=== PATIENT | male | born 1935 | race Caucasian/White ===

== ENCOUNTER 2018-04-18 02:01 | Inpatient (IN) | payer OTHER ==
[~2018-04-18] VITALS: Ht 180.3 cm; Wt 99.8 kg
[~2018-04-18 02:01] MED LIST: ALLI60 MG PO; AMLODIPINE BESY10 M1 PO; ASPIRIN EC81 M1 PO; ATENOLOL25 M1 PO; DYAZIDE 37.5-21 EACH PO; FINASTERIDE5 M1 PO; GLUCOSAMINE &1 EAC1 PO; HYDRALAZINE HCL50 M1 PO; LISINOPRIL40 M1 PO; MECLIZINE HCL25 MG PO; MULTIVITAMINS1 EAC9 PO; NIACIN500 M6 PO; SAW PALMETTO450 M1 PO; ZOCOR20 M1 PO
--- NOTE | 2018-04-18 14:48 | Operative Report ---
Operative/Inv Procedure Report Surgery Date: 04/18/18 Name of Procedure: Left total knee replacement Pre-Operative Diagnosis: Primary left knee DJD Post-Operative Diagnosis: Same Estimated Blood Loss: 50ml to 100ml Surgeon/Hop Trainer: Jonathan MCLEOD,James Rodríguez Anesthesia: block Operative/Procedure Note Note: Description of Procedure: The patient was taken to the operating room and positively identified. After induction of spinal anesthesia and administration of appropriate pre-operative antibiotics, the patient was positioned supine on the operating room table and all bony prominences were well padded. A well-padded pneumatic tourniquet was placed on the left upper thigh. After performing a surgical timeout, the left lower extremity was prepped and draped in the usual sterile fashion. After exsanguination with Esmarch the tourniquet was inflated to 250mm of mercury. A standard medial parapatellar approach was made to the knee. This was carried down through skin and subcutaneous tissue to the level of the fascia. Meticulous hemostasis was maintained with Bovie electrocautery. The extensor mechanism and patellar retinaculum were opened sharply and the patella was everted. The infrapatellar fat was resected in order to improve exposure. Osteophytes were trimmed from the patella and femoral condyles and the patella was re-everted and tucked laterally. A medial release was performed and the cruciate ligaments were resected. The tibia was then subluxed anteriorly. Utilizing the appropriate extra-medullary guide, the proximal tibia was trimmed perpendicular to the long axis of the tibial shaft. Attention was then turned to the femur. After opening the medullary canal, the distal femoral cut was made in 6 degrees of valgus utilizing the appropriate intra-medullary guide. The extension gap was checked and found to be appropriate. The femur was then sized and the remainder of the femoral cuts were made with a size 5 4-in-1 femoral cutting guide. The flexion gap was checked and found to be symmetric and appropriate. The knee was then trialed with a size 5 femoral component, a size 6 tibial component and a size 11 mm polyethylene insert. The patella was trimmed to accept an A 35 patella. This yielded excellent range of motion, stability and patellar tracking. All trial components were removed and the knee was copiously irrigated with sterile saline. All components were cemented into place with Roland Simplex cement. All the components were of the Kurtis Triathlon knee system of the above stated sizes. The knee was again irrigated after cementation. The extensor mechanism and patellar retinaculum were repaired using interrupted #1 vicryl suture. The skin was re-approximated with 2-0 vicryl and closed with keira. A sterile dressing was applied, the tourniquet was deflated, the patient was awakened and taken to the recovery room in satisfactory condition.
--- NOTE | 2018-04-18 15:21 | Admission Core Measures ---
Acute Coronary Syndrome (CM) ACS Core Measures Acute Coronary Syndrome Diagnosis No Congestive Heart Failure (NEW) CHF Core Measures Congestive Heart Failure Diagnosis No Cerebrovascular Accident CVA Core Measures CVA/TIA Diagnosis No Venous Thromboembolism VTE Core [place] (View Protocol) VTE Risk Factors Surgery No Mechanical VTE Prophylaxis d/t N/A MechProphylax Ordered No VTE Pharm Prophylaxis d/t NA PharmProphylax ordered Problem List As ranked by this Provider includes Assessment & Plan 1. Unilateral primary osteoarthritis, left knee HOME MEDS Home Med List Amlodipine Besylate 10 MG TABLET 1 TAB PO DAILY BP (Reported) Aspirin (Ecotrin*) 81 MG TABLET.DR 1 TAB PO DAILY HEART/BLOOD (Reported) Atenolol 25 MG TABLET 1 TAB PO DAILY BP (Reported) Finasteride 5 MG TABLET 1 TAB PO DAILY PROSTATE (Reported) Gluc 2KCL/Chondr/Lane Hy/Hy AC (Glucosamine & Chondroitin Cap) (Unknown Strength ) CAPSULE (Unknown Dose) PO BID SUPPLEMENT (Reported) Hydralazine HCl 50 MG TABLET 1.5 TAB PO BID BP (Reported) Lisinopril 40 MG TABLET 1 TAB PO DAILY BP (Reported) Meclizine HCl 25 MG TABLET 1 TAB PO PRN DIZZINESS (Reported) Multiple Vitamin (Multivitamins) 1 EACH TABLET 1 TAB PO DAILY SUPPLEMENT ( Reported) Niacinamide (Niacin) 500 MG TABLET 1 TAB PO DAILY SUPPLEMENT (Reported) Orlistat (JAYDON) 60 MG CAPSULE 1 CAP PO AD WEIGHT LOSS (Reported) Saw [place] Fruit (Saw [place]) 450 MG CAPSULE 1 CAP PO BID SUPPLEMENT ( Reported) Simvastatin (Zocor*) 20 MG TABLET 1 TAB PO DAILY CHOLESTEROL (Reported) Triamterene/Hydrochlorothiazid (Dyazide 37.5-25 Capsule) 37.5 MG-25 MG CAPSULE 1 CAP PO DAILY BP (Reported)
[2018-04-18] MEDS ORDERED: DILAUDID2 M1 PO (15:59)
[2018-04-18] MEDS ORDERED: MIRALAX17 G1 PO (15:59)
[2018-04-18] MEDS ORDERED: ASPIRIN EC325 M2 PO (15:59)
[2018-04-18] MEDS ORDERED: COLACE100 M1 PO (15:59)
[2018-04-18] MEDS ORDERED: PRILOSEC OTC20 M1 PO (15:59)
--- NOTE | 2018-04-18 16:05 | Patient Discharge Instructions ---
Discharge Instructions General Discharge Information You were seen/treated for: Left knee pain related to unilateral primary osteoarthritis You had these procedures: Left total knee replacement Watch for these problems: Increasing pain despite the use of pain medication Increasing redness, warmth or swelling Drainage of any type from incision Inability to bear weight on operative leg Persistent nausea and vomiting Fever greater than 101.5 degrees Do not soak the wound: Yes No bath, but you may shower: Yes Other wound care: Please keep wound clean and dry. No ointments or lotions of any type on or near incision at any time. No exceptions. Your dressing will be changed by your nurse on the second day after your surgery. Daily dry dressing changes are recommended each day thereafter. Do not soak your wound in a bath or pool at any time until otherwise indicated by your surgeon. You may shower, please dry wound immediately after shower with a clean towel. Special Instructions: Aspirin: You are taking this medication to help prevent blood clot formation. Please take with food to protect your stomach lining. Please take as directed. Constipation: Pain medication can cause constipation. Your surgeon has recommended that you take Colace and miralax each day. You may discontinue this medication if you develop loose stool or diarrhea. If you wish to continue this medication, it is available over the counter. If you are unable to move your bowels after several days, if you are unable to pass gas and are developing bloating, nausea, or vomiting as a result, please contact your doctor. Diet Continue normal diet: Yes Recommended Diet: Heart Healthy Activity Full Activity/No Limits: No Activity Self Limited: Yes Pounds, do NOT lift more than: 10 Acute Coronary Syndrome Inclusion Criteria At DC or during hospital stay patient has or had the following: ACS DIAGNOSIS No Discharge Core Measures Meds if any: Prescribed or Continued at Discharge Meds if any: NOT Prescribed or Continued at Discharge Congestive Heart Failure Inclusion Criteria At DC or during hospital stay patient has or had the following: CHF DIAGNOSIS No Discharge Core Measures Meds if any: Prescribed or Continued at Discharge Meds if any: NOT Prescribed or Continued at Discharge Cerebrovascular accident Inclusion Criteria At DC or during hospital stay patient has or had the following: CVA/TIA Diagnosis No Discharge Core Measures Meds if any: Prescribed or Continued at Discharge Meds if any: NOT Prescribed or Continued at Discharge Venous thromboembolism Inclusion Criteria VTE Diagnosis No VTE Type NONE VTE Confirmed by (Test) NONE Discharge Core Measures - Per Current guidelines, there needs to be overlap - treatment for the first 5 days of Warfarin therapy. - If discharged on Warfarin prior to 5 days of - overlap therapy, the patient will need to be - assessed for post discharge needs including - *Post discharge parental anticoagulation - *Warfarin and/or parental anticoagulation education - *Follow up date to check INR post discharge At least 5 days overlap therapy as Inpatient No Meds if any: Prescribed or Continued at Discharge Note: Overlap Therapy is Warfarin and Anticoagulant Meds if any: NOT Prescribed or Continued at Discharge
--- NOTE | 2018-04-18 16:06 | PN- Orthopedic ---
Subjective Subjective: POC Pt is recovering well in PACU, no complaints of pain, just tightness in his left knee. Denies paresthesias. Tolerating clears. Due to void. Denies CP,SOB or PLEITEZ Objective Vital Signs and I&Os Intake & Output 04/18 1600 04/18 0800 04/18 0000 04/17 1600 04/17 0800 04/17 0000 Intake Total Output Total Balance Patient 224 lb 227 lb Weight Bradicardic at 45-50 bpm, BP 125/55 Physical Exam: gen- NAD resp- clear cardiac- sindhu, regular rhythm ext- LLE wrapped in ruma bandage with ice pack, dressing clean and dry. 2+PT pulse. Distal sensory and motor function intact Current Medications: Current Medications Sig/Jacqueline Start time Last Medication Dose Route Stop Time Status Admin Acetaminophen 0 .STK-MED ONE 04/18 1152 DC PO Acetaminophen 975 MG ONCE 04/18 0000 AC PO 04/18 2359 Cefazolin Sodium 2,000 MG ONCE 04/18 0000 NR IV 04/18 2359 Fentanyl Citrate 0 .STK-MED ONE 04/18 1150 DC .ROUTE Midazolam HCl 0 .STK-MED ONE 04/18 1150 DC .ROUTE Midazolam HCl 2 MG .STK-MED ONE 04/18 0654 DC IM 04/18 0655 Oxycodone HCl 0 .STK-MED ONE 04/18 1152 DC PO Oxycodone HCl 10 MG ONCE 04/18 0000 AC PO 04/18 2359 Tranexamic Acid 2,000 MG .STK-MED ONE 04/18 0654 DC IV 04/18 0655 Assessment/Plan Assessment/Plan 82yo M SP L TKA POD0. stable with bradycardia in PACU. pt states he took his betablocker this morning pain management IVF overnight, likely will DC in am reg diet FU AM labs regular home meds. Will follow vital signs, may hold home betablocker if HR continues to be low PT- WBAT IS DVT PPX- asa, alps, teds dressing change POD2 DC planning- to stay 2-3 nights Core Measures Venous Thromboembolism VTE Risk Factors Surgery No Mechanical VTE Prophylaxis d/t N/A MechProphylax Ordered No VTE Pharm Prophylaxis d/t NA PharmProphylax ordered
--- NOTE | 2018-04-18 16:07 | Surgical Discharge Summary ---
Visit Information Visit Dates Admission Date: 04/18/18 History of Present Illness Chief Complaint: Left knee pain related to unilateral primary osteoarthritis Medical History Isolation History: Standard Surgical History Pertinent Surgical History: non-contributory Review of Systems: See H&P Hospital Course Course Attending Physician: James Castillo MD Primary Care Physician: Rodger Carter MD Hospital Course: Patient was admitted to the hospital for an elective total joint replacement. The procedure was tolerated well and patient was transferred to a general surgical floor. Diet was advanced and tolerated. The patient was evaluated and treated by physical therapy. At the time of hospital discharge, the vital signs were stable, neurovascular status was intact, and pain was controlled with the use of oral pain medications. Allergies: Coded Allergies: oxybutynin (From DITROPAN) (UNKNOWN 04/17/18) DITROPAN XL PER ANTIBIOTIC ORDER SHEET OF 04/17/18 ([facility]) Disposition Summary Disposition Principal Diagnosis: Left knee unilateral primary osteoarthritis Additional Diagnosis: None Discharge Disposition: home health services Discharge Instructions General Discharge Information Code Status: Full Code Patient's Diet: Heart healthy, advance as tolerated Patient's Activity: WBAT Follow-Up Instructions/Appts: Follow up with Dr. Castillo in 6 weeks from date of surgery. Please call office to arrange &/or confirm this appointment. Medications at Discharge Discharge Medications: Stop taking the following medications: Aspirin (Ecotrin*) 81 MG TABLET.DR BUNDY DAILY Continue taking these medications: Amlodipine Besylate (Amlodipine Besylate) 10 MG TABLET 1 Tablet ORAL DAILY Atenolol (Atenolol) 25 MG TABLET 1 Tablet ORAL DAILY Finasteride (Finasteride) 5 MG TABLET 1 Tablet ORAL DAILY Lisinopril (Lisinopril) 40 MG TABLET 1 Tablet ORAL DAILY Meclizine HCl (Meclizine HCl) 25 MG TABLET 1 Tablet ORAL as needed for DIZZINESS Hydralazine HCl (Hydralazine HCl) 50 MG TABLET 1.5 Tablet ORAL TWICE DAILY Simvastatin (Zocor*) 20 MG TABLET 1 Tablet ORAL DAILY Triamterene/Hydrochlorothiazid (Dyazide 37.5-25 Capsule) 37.5 MG-25 MG CAPSULE 1 Capsule ORAL DAILY Multiple Vitamin (Multivitamins) 1 EACH TABLET 1 Tablet ORAL DAILY Gluc 2KCL/Chondr/Lane Hy/Hy AC (Glucosamine & Chondroitin Cap) (Unknown Strength ) CAPSULE Unknown Dose ORAL TWICE DAILY Niacinamide (Niacin) 500 MG TABLET 1 Tablet ORAL DAILY Saw [place] Fruit (Saw [place]) 450 MG CAPSULE 1 Capsule ORAL TWICE DAILY Orlistat (JAYDON) 60 MG CAPSULE 1 Capsule ORAL As Directed Start taking the following new medications: Aspirin (Ecotrin*) 325 MG TABLET.DR 1 Tablet ORAL TWICE DAILY Qty = 60 No Refills Docusate Sodium (Colace) 100 MG CAPSULE 1 Capsule ORAL TWICE DAILY Qty = 14 No Refills Instructions: DISCONTINUE USE IF YOU DEVELOP LOOSE STOOL OR DIARRHEA Polyethylene Glycol 3350 (Miralax) 17 GRAM POWD.PACK 1 Packet ORAL DAILY Qty = 7 No Refills Instructions: dissolve in water, DISCONTINUE USE IF YOU DEVELOP LOOSE STOOL OR DIARRHEA Omeprazole Magnesium (Prilosec Otc) 20 MG TABLET.DR 1 Tablet ORAL DAILY Qty = 30 No Refills Hydromorphone HCl (Dilaudid) 2 MG TABLET 1-2 Tablet ORAL EVERY 4-6 HOURS NEEDED as needed for PAIN Qty = 36 No Refills
[2018-04-18 19:59] VITALS: BP 156/70
[2018-04-18 22:45] VITALS: BP 132/73
[2018-04-19 06:16] VITALS: BP 146/64
--- NOTE | 2018-04-19 06:58 | PN- Student ---
Kathelen Gunn 04/19/18 0643: Subjective Subjective: No acute events overnight, pt's heart rate has remained in low 60s/high 50s, pt states this is his baseline d/t his atenolol. The pt's knee is in quite a bit of pain this morning. He states it hurts to lift up his leg. Pt has not been seen by PT yet and hasn't been oob. Tolerating his reg diet. No flatus or BM yet. Pt denies n/v, h/a,fever,chills,cp. Objective Objective: Vital Signs Date Time Temp Pulse Resp B/P B/P Pulse O2 O2 Flow FiO2 Mean Ox Delivery Rate 04/19 616 98.9 61 18 146/64 93 Room Air 04/18 224 98.7 58 18 132/73 91 04/18 195 97.8 59 20 156/70 91 Last 24 Hours I&Os 04/19 0800 04/19 0000 04/18 1600 Intake Total 840 890 Output Total 350 300 Balance 490 590 Intake, IV 600 450 Intake, Oral 240 440 Output, Urine 350 300 Patient 220 lb Weight Weight Reported by Patient Measurement Method Microbiology Date/Time Procedure - Status Source Growth 04/18 1346 Miscellaneous Culture - CAN MISC O.R. Cancelled: ERROR 04/18 1346 Gram Stain - CAN MISC O.R. Cancelled: ERROR 04/18 1341 Gross Specimen Examination - RECD EXTREMITIE 04/18 1341 Gram Stain - RECD EXTREMITIE Orders Procedure Date/time Status CBC WITHOUT DIFFERENTIAL 04/19 06 Active BASIC ELECTROLYTES PLUS BUN&CR 04/19 0600 Active MISSING MEDICATION FORM 04/19 0452 Active Weight 04/19 0035 Complete Vital Signs 04/19 0035 Active Teach/Educate 04/19 003 Active Pain Treatment and Response 04/19 003 Active Nutritional Intake, Monitor 04/19 0035 Active Isolation 04/19 0035 Active Intake & Output 04/19 003 Active Patient Care Conference 04/19 0035 Active Activity/Ambulation 04/19 0035 Active Heart Healthy Diet 04/18 D Active PT Evaluate & Treat 04/18 1657 Active Pathway - chart 04/18 165 Active Admit to inpatient 04/18 1657 Active Patient Data 04/18 1657 Active Wound Care/Dressing 04/18 1657 Active VTE Mechanical Prophylaxis 07/25 1657 Active Vital Signs 04/18 1657 Active Nursing Misc 04/18 165 Active Heat/Cold Therapy 04/18 165 Active Activity/Ambulation 04/18 1657 Active TRANSFER ORDERS 04/18 1455 Complete Code Status 04/18 1455 Active PATHOLOGY SPECIMEN 04/18 1433 Active EXTREMETIES OR SPEC 04/18 1341 Active Physical Exam: General: o&a x3, sitting up in bed, comfortable, in no distress Lungs: decreased breath sounds bibasilar posterior, the rest of the lung bravo good air flow, clear Heart: slow rhythm, regular rate, S1 and S2 normal Abd: soft, normoactive bs, nt/nd Ext: Alps in place, compression stocking in place, LLE-ruma bandage in place and ice pack in place. Sensation intact. Strength 5/5 bilaterally. dp pulses 2+ bilaterally. Left anterior thigh- slight tenderness upon palpation Results Results: Microbiology 04/18 1346 MISC O.R.: Miscellaneous Culture - CAN Cancelled: ERROR 04/18 1346 MISC O.R.: Gram Stain - CAN Cancelled: ERROR 04/18 1341 EXTREMITIE: Gross Specimen Examination - RECD 04/18 1341 EXTREMITIE: Gram Stain - RECD Assessment/Plan Assessment: Pt is 82 yo male with a PMHx of htn, hyperlipidemia, vertigo and bph that is POD 1 s/p left TKR. Plan: -Aspirin 325 mg and ALPS for dvt ppx -No barrientos, pt is voiding, 650 cc output over last 24 hours, encourage po intake -Pt on reg diet, tolerating, continue -Perioperative abx complete -dc IVF fluids today -c/w pain management as prescribed -Encourage oob/ambulation with PT -Hold Atenolol this AM d/t HR being 59 -Will order IS as pt has decreased bs and saturating in low 90s on RA -Dressing change tomorrow AM -Pt will stay one more night Signed REYNA Mcclain Andrea 04/19/18 1540: Assessment/Plan Plan: Seen an eval with Kathleen ORELLANA. Agree with above. LLE dressing in place, motor an sensory intact, compartment soft. Wean IV morphine. D/c IVF. Home meds on board. ASA 325 bid for dvt ppx. OOb ambulation with PT. Cont current care. Dressing change tomorrow. Anticipate d/c home with [facility] tomorrow.
[2018-04-19 08:15] LABS: ABSOLUTE BASOPHIL COUNT 0 /CUMM (0.0-0.2); ABSOLUTE EOSINOPHIL COUNT 0.2 /CUMM (0.0-0.7); ABSOLUTE LYMPH COUNT 0.9 /CUMM (1.2-3.4); ABSOLUTE MONOCYTE COUNT 0.9 /CUMM (0.10-0.60); BASOPHIL % 0.2 % (0.0-2.0); EOSINOPHIL % 2.3 % (0-5); GRANULOCYTE % 72.1 % (42.2-75.2); HEMATOCRIT 38.7 % (42-52); MEAN CORPUSCULAR HGB 31.2 PG (27.0-31.0); MEAN CORPUSCULAR HGB CONC 33.4 G/DL (33.0-37.0); MEAN CORPUSCULAR VOLUME 93.5 FL (80.0-94.0); MEAN PLATELET VOLUME 8.3 FL (7.4-10.4); PLATELET COUNT 162 /CUMM (130-400); RBC DISTRIBUTION WIDTH 14.1 % (11.5-14.5); RED BLOOD CELL CT 4.13 /CUMM (4.70-6.10)
[2018-04-19 09:15] VITALS: BP 143/66
[2018-04-19 13:28] VITALS: BP 137/67
[2018-04-19 20:47] VITALS: BP 166/68
[2018-04-20 06:34] VITALS: BP 150/64
--- NOTE | 2018-04-20 07:56 | PN- Student ---
Kathleen Gunn 04/20/18 0752: Subjective Subjective: No major overnight event, pt did have a slight fever of 100, but is at 98.1 now. Saw the pt this morning and his pain is well controlled. Pt was able to get oob yesterday with PT and has being getting oob to go to the bathroom. Denies n/v, h /a, sob, cp overnight. Objective Objective: Vital Signs Date Time Temp Pulse Resp B/P B/P Pulse O2 O2 Flow FiO2 Mean Ox Delivery Rate 04/20 0634 98.1 63 20 150/64 91 Room Air 04/19 2153 98.4 04/19 204 100.0 70 18 166/68 04/19 2047 100.0 70 18 166/68 92 Room Air 04/19 1328 98.1 59 16 137/67 94 Room Air 04/19 0915 98.0 61 18 143/66 92 Room Air 04/19 0749 61 146/64 04/19 0749 61 146/64 04/19 0748 61 146/64 04/19 0748 61 146/64 04/19 0616 98.9 61 18 146/64 93 Room Air 04/18 2245 98.7 58 18 132/73 91 04/18 1959 97.8 59 20 156/70 91 Last 24 Hours I&Os 04/20 0800 04/20 0000 04/19 1600 Intake Total 350 317 9674 Output Total 475 600 450 Balance -355 -120 675 Intake, IV 375 Intake, Oral 120 480 750 Number 0 Bowel Movements Output, Urine 475 600 450 Microbiology Date/Time Procedure - Status Source Growth 04/18 1346 Miscellaneous Culture - CAN MISC O.R. Cancelled: ERROR 04/18 1346 Gram Stain - CAN MISC O.R. Cancelled: ERROR 04/18 1341 Gross Specimen Examination - RES EXTREMITIE 04/18 1341 Gram Stain - RES EXTREMITIE Orders Procedure Date/time Status CMS- Neurovascular Checks 04/19 0949 Active CBC WITHOUT DIFFERENTIAL 04/19 06 Complete BASIC ELECTROLYTES PLUS BUN&CR 04/19 06 Complete MISSING MEDICATION FORM 04/19 0452 Active Weight 04/19 0035 Complete Vital Signs 04/19 35 Active Teach/Educate 04/19 35 Active Pain Treatment and Response 04/19 35 Active Nutritional Intake, Monitor 07/26 0035 Active Isolation 07/26 0035 Active Intake & Output 04/19 0035 Active Patient Care Conference 04/19 0035 Active Activity/Ambulation 04/19 0035 Active Therapeutic Activities 04/19 UNK Complete Therapeutic Exercise 04/19 UNK Complete PT EVAL LOW COMPLEX 20 MIN 04/19 UNK Complete Gait Training 04/19 UNK Complete Heart Healthy Diet 04/18 D Active PT Evaluate & Treat 04/18 165 Active Pathway - chart 04/18 165 Active Admit to inpatient 04/18 1657 Active Patient Data 04/18 1657 Active Wound Care/Dressing 04/18 165 Active VTE Mechanical Prophylaxis 04/18 1657 Active Vital Signs 04/18 165 Active Nursing Misc 04/18 165 Active Heat/Cold Therapy 04/187 Active Activity/Ambulation 04/18 1657 Active TRANSFER ORDERS 04/18 1455 Complete Code Status 04/18 1455 Active PATHOLOGY SPECIMEN 04/18 1433 Complete EXTREMETIES OR SPEC 04/18 1341 Active Gen: O&Ax3, laying in bed comfortably Lungs: CTA C/V: slow rhythm, regular rate, S1 and S2 normal Abd: normoactive bs, soft, distended, nontender ext: alps in place, ruma compression on left extremity, slight pain upon palpation of left upper extremity. Sensation intact. Pulses intact. Motor 5/5 bilaterally Assessment/Plan Assessment: Pt is 82 yo male with a PMHx of htn, hyperlipidemia, vertigo and bph that is POD 2 s/p left TKR. Plan: -Aspirin 325 mg and ALPS for dvt ppx -No barrientos, pt is voiding, encourage po intake -Pt on reg diet, tolerating, continue -Perioperative abx complete -pain well controlled, requiring some morphine prn -Able to get oob with PT yesterday, did have some pain, c/w WBAT -Dressing change today -Pt likely ready for discharge later today after seeing PT again today Signed REYNA Mcclain Dena 04/20/18 0814: Assessment/Plan Assessment: Patient seen and agree with PA-S note above. Pain well controlled on PO Dilaudid. Has not received Morphine since yesterday afternoon. Tanya diet without issue. No numbness, tingling or shooting pains to LLE. Dressing taken down. Incision c/d/i, keira in place, no hematoma appreciated. New dressing applied. Motor and sensation intact. Foot warm, + DP pulse. Plan for d/c today with home PT after working with PT this morning. Will d/w Dr. Castillo. As Ranked By This Provider Problem List: 1. Unilateral primary osteoarthritis, left knee
[2018-04-20 09:20] VITALS: BP 150/64
== END 2018-04-20 12:35 | disposition home health service (06) | DRG 470 ==
LOC: SDA 02:01 → ENRESERV 16:00 → ENTRNSPT 16:35 → EDTRNSPT 16:39 → EDTRNSPTSTS 16:39 → 2NB 16:51 → CMPTRNSPT 16:57 → ENPENDDIS 04-20 10:46 → ENTRNSPT 04-20 12:14 → EDTRNSPTSTS 04-20 12:22 → EDTRNSPT 04-20 12:22 → CMPTRNSPT 04-20 12:30 → 2NB 04-20 12:35
PROVIDERS: Nurse Practitioner
PROC: 3E0T3BZ Introduction of Anesthetic Agent into Peripheral Nerves and Plexi, Percutaneous Approach (ICD-10-PCS; principal; 2018-04-18)
PROC: 0SRD0J9 Replacement of Left Knee Joint with Synthetic Substitute, Cemented, Open Approach (ICD-10-PCS; principal; 2018-04-18)
DX: M17.12 Unilateral primary osteoarthritis, left knee (principal); R00.1 Bradycardia, unspecified; E78.5 Hyperlipidemia, unspecified; I10 Essential (primary) hypertension; N40.0 Benign prostatic hyperplasia without lower urinary tract symptoms; I25.10 Atherosclerotic heart disease of native coronary artery without angina pectoris
CPT/HCPCS: 2NSBP; 87070; 87075; 36592; 82436; 97110-GO; 97116-GO; 97161-GP; 97530-GO; C1713; J0131; J0690; J2405; J2550